=== PATIENT | female | born 1945 | race Caucasian/White ===

== ENCOUNTER 2022-03-09 14:19 | Outpatient (CLI) | payer MEDICARE, BC, SELFPAY ==
[2022-03-09 14:46] LABS: Influenza Type A Negative (Negative); Influenza Type B Negative (Negative)
[2022-03-09 19:00] LABS: SARS PCR* Negative SARS-CoV-2 (Negative)
== END 2022-03-09 14:20 | disposition home or self-care (01) ==
PROVIDERS: PCP Family Medicine; Visit Provider Family Medicine
DX: Z20.822 Contact with and (suspected) exposure to COVID-19 (principal); R05.9 Cough, unspecified
CPT/HCPCS: 87635; 87804

== ENCOUNTER 2022-06-29 08:34 | Outpatient (CLI) | payer MEDICARE, BC, SELFPAY ==
[2022-06-29 13:41] LABS: Chloride* 100 mmol/L (96-114); Sodium* 137 mmol/L (135-149)
[2022-06-29 13:42] LABS: Potassium* 4.3 mmol/L (3.6-5.1)
[2022-06-29 13:44] LABS: Blood Urea Nitrogen* 26 mg/dL (7-30); Carbon Dioxide* 28 mmol/L (20-32); Cholesterol* 151 mg/dL (90-199); Creatinine* 0.6 mg/dL (0.5-1.5); Estimated Glomerular Filt Rate 92 ml/min; Glucose* 144 mg/dL (60-115)
[2022-06-29 13:45] LABS: Calcium* 9.6 mg/dL (8.4-10.6); HDL Cholesterol* 76 mg/dL (>=50); LDL Cholesterol Calculated 36 mg/dL (<100); Triglycerides* 194 mg/dL (40-149)
[2022-06-29 14:36] LABS: Free T4 Free Thyroxine* 1.09 ng/dL (0.70-1.85)
== END 2022-06-29 08:35 | disposition home or self-care (01) ==
PROVIDERS: PCP Family Medicine; Visit Provider Family Medicine
DX: Z00.00 Encounter for general adult medical examination without abnormal findings (principal); I10 Essential (primary) hypertension; E03.9 Hypothyroidism, unspecified; E78.5 Hyperlipidemia, unspecified; E13.9 Other specified diabetes mellitus without complications
CPT/HCPCS: 80048; 80061; 84439; 84443

== ENCOUNTER 2022-11-22 11:02 | Outpatient (CLI) | payer MEDICARE, BC, SELFPAY | END 2022-11-22 11:03 | disposition home or self-care (01) | PROVIDERS: PCP Family Medicine; Visit Provider Family Medicine | DX: Z01.818 Encounter for other preprocedural examination (principal); I10 Essential (primary) hypertension | CPT/HCPCS: 80048 ==

== ENCOUNTER 2022-12-31 13:31 | Outpatient (CLI) | payer MEDICARE, BC, SELFPAY | END 2022-12-31 13:32 | disposition home or self-care (01) | LOC: NFLDREF 01-05 11:20 | PROVIDERS: PCP Family Medicine; Referring Provider Family Medicine; Visit Provider Family Medicine | DX: R39.9 Unspecified symptoms and signs involving the genitourinary system (principal); N39.0 Urinary tract infection, site not specified; R30.0 Dysuria; N30.00 Acute cystitis without hematuria | CPT/HCPCS: 87086; 87186 ==

== ENCOUNTER 2023-04-25 13:38 | Outpatient (CLI) | payer MEDICARE, BC, SELFPAY | END 2023-04-25 13:39 | disposition home or self-care (01) | PROVIDERS: PCP Family Medicine; Visit Provider Family Medicine | DX: Z01.818 Encounter for other preprocedural examination (principal); E03.9 Hypothyroidism, unspecified; I10 Essential (primary) hypertension; E78.5 Hyperlipidemia, unspecified; Z86.14 Personal history of Methicillin resistant Staphylococcus aureus infection; Z13.1 Encounter for screening for diabetes mellitus | CPT/HCPCS: 84439; 84443; 87081 ==

== ENCOUNTER 2023-05-17 11:22 | Outpatient (CLI) | payer MEDICARE, BC, SELFPAY | END 2023-05-17 11:23 | disposition home or self-care (01) | LOC: NFLDREF 05-18 06:34 | PROVIDERS: PCP Family Medicine; Referring Provider Family Medicine; Visit Provider Family Medicine | DX: N39.0 Urinary tract infection, site not specified (principal); N30.90 Cystitis, unspecified without hematuria; R71.0 Precipitous drop in hematocrit; N30.00 Acute cystitis without hematuria | CPT/HCPCS: 87086 ==

== ENCOUNTER 2024-04-30 09:17 | Outpatient (CLI) | payer MEDICARE, BC, SELFPAY | END 2024-04-30 09:18 | disposition home or self-care (01) | PROVIDERS: PCP Family Medicine; Visit Provider Family Medicine | DX: E03.9 Hypothyroidism, unspecified (principal); E78.00 Pure hypercholesterolemia, unspecified; E13.9 Other specified diabetes mellitus without complications | CPT/HCPCS: 80048; 80061; 82043; 82570; 84439; 84443 ==

== ENCOUNTER 2024-10-02 13:35 | Outpatient (CLI) | payer MEDICARE, BC, SELFPAY ==
--- NOTE | 2024-10-02 14:00 | CRLHL7_ITS ---
For Patients: As a result of the Century Cures Act, medical imaging exams and procedure reports are released immediately into your electronic medical record. You may view this report before your referring provider. If you have questions, please contact your health care provider. Indication: Otorrhea, left-sided. Technique: Noncontrast CT of the temporal bones with multiplanar reconstruction utilizing bone and soft tissue algorithms. Comparison: None available. Findings: Right: Patent external auditory canal. Opacified mastoid air cells. Intact sigmoid plate with prominent emissary veins. Clear middle ear cavity. The ossicular chain is intact. The otic capsule is normal in density. The cochlea, vestibule, and semicircular canals are within normal limits. The internal auditory canal, carotid canal, and canal for the facial nerve are unremarkable in appearance. Left: Patent external auditory canal. Mild thickening of the tympanic membrane. Opacified mastoid air cells and epitympanum. Dehiscent tegmen tympani (series 9, image 29). The ossicular chain is intact. The aortic capsule is normal in density. The cochlea, vestibule, and semicircular canals are within normal limits. The internal auditory canal, canal for the facial nerve, and carotid canal are unremarkable. Impression: 1. On the left, opacified mastoid air cells and epitympanum, consistent with otomastoiditis, with dehiscence of the tegmen tympani. 2. On the right, opacified mastoid air cells suggestive of mastoiditis. Please note that all CT scans at this facility use dose modulation, iterative reconstruction, and/or weight-based dosing when appropriate to reduce radiation dose to as low as reasonably achievable. Dictated by Kapil Brady MD @ 10/03/2024 12:45:43 PM (Electronically Signed)
== END 2024-10-02 13:36 | disposition home or self-care (01) ==
PROVIDERS: PCP Family Medicine; Visit Provider Otolaryngology
DX: H92.12 Otorrhea, left ear (principal); H70.93 Unspecified mastoiditis, bilateral
CPT/HCPCS: 70480

== ENCOUNTER 2025-05-03 09:15 | Outpatient (CLI) | payer MEDICARE, BC, SELFPAY | END 2025-05-03 09:16 | disposition home or self-care (01) | PROVIDERS: PCP Family Medicine; Visit Provider Family Medicine | DX: E03.9 Hypothyroidism, unspecified (principal); E13.9 Other specified diabetes mellitus without complications; E78.00 Pure hypercholesterolemia, unspecified | CPT/HCPCS: 80048; 80061; 84439; 84443 ==